=== PATIENT | female | born 1980 | race American Indian/Alaskan Native ===

== ENCOUNTER 2017-03-20 18:58 | Emergency (ER) | payer OTHER ==
[2017-03-20 19:09] VITALS: BP 109/65
[2017-03-20] MEDS ORDERED: HYDROmorphone 0.5 MG/0.5 ML Syringe IVPUSH ONE ×2 (19:26→22:24)
[2017-03-20] MEDS ORDERED: Sodium Chloride 0.9% 500 ML IV ONE (19:26)
[2017-03-20] MEDS ORDERED: Ondansetron 4 MG/2 ML SDV IVPUSH ONE (19:26)
[2017-03-20] MEDS ORDERED: levETIRAcetam 500 MG in Sodium Chloride 0.9% 100 ML IV ONE (19:27)
[2017-03-20] MEDS ORDERED: Sodium Chloride 0.9% 10 ML Syringe FLUSH PRN (19:27)
[2017-03-20] MEDS ORDERED: LORazepam 2 MG/ML MDV IVPUSH ONE (19:28)
[2017-03-20] MEDS ORDERED: Potassium Chloride 10 MEQ in Premix Bag 1 BAG IV ONE (20:37)
--- NOTE | 2017-03-20 20:49 | EDM.PDOC ---
ED HPI GENERAL MEDICAL PROBLEM - General Chief Complaint: Neuro Symptoms/Deficits Stated Complaint: [facility] Time Seen by Provider: 03/20/17 19:16 Source of Information: Reports: Patient, EMS Notes Reviewed, RN Notes Reviewed - History of Present Illness INITIAL COMMENTS - FREE TEXT/NARRATIVE: 37-year-old female comes in having had 2 seizures this past afternoon. She also has left low back pain. She feels that she must stressed her back with the seizure. She was in the bathroom when she did have her second seizure. 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 Her boyfriend told EMS that they lasted about 2-5 minutes. She also does have some headache. She's had some nausea. She had been feeling fine earlier today. She did run out of her Keppra a couple of weeks ago and therefore has been off of that medication for at least 2 weeks. Bilateral Lower Back Pain Score (Numeric/FACES): 9 - Related Data Allergies Allergy/AdvReac Type Severity Reaction Status Date / Time No Known Allergies Allergy Verified 03/20/17 19:04 Home Meds: Home Meds LORazepam [Ativan] 1 mg PO Q12H PRN #10 tablet 09/28/16 [Rx] LORazepam [Ativan] 1 mg PO Q12HR PRN #20 tablet 03/20/17 [Rx] levETIRAcetam [Keppra] 500 mg PO BID #60 tablet 03/20/17 [Rx] Past Medical History [facility] History: Reports: Neurological History: Reports: Seizure Other Neuro History: AV malformation Psychiatric History: Reports: Anxiety, Depression Endocrine/Metabolic History: Reports: Other (See Below) Other Endocrine/Metabolic History: Enlarged thyroid gland - Past Surgical History GI Surgical History: Reports: Cholecystectomy Female Surgical History: Reports: Section Social & Family History - Tobacco Use Smoking Status *Q: Current Every Day Smoker Years of Tobacco use: 26 Packs/Tins Daily: 0.5 - Caffeine Use Caffeine Use: Reports: None - Alcohol Use Days Per Week of Alcohol Use: 4 Number of Drinks Per Day: 14 Total Drinks Per Week: 56 - Recreational Drug Use Recreational Drug Use: No ED ROS GENERAL - Review of Systems Review Of Systems: See Below Constitutional: Denies: Fever, Chills HEENT: Denies: Sinus Problem, Throat Pain Respiratory: Denies: Shortness of Breath Cardiovascular: Denies: Chest Pain GI/Abdominal: Reports: Nausea. Denies: Abdominal Pain, Diarrhea, Vomiting Musculoskeletal: Reports: Back Pain Skin: Denies: Rash Neurological: Reports: Dizziness, Headache, Seizure (2) ED EXAM, NEURO - Physical Exam Exam: See Below General Appearance: Alert, Moderate Distress Eye Exam: Bilateral Eye: PERRL Ears: Normal External Exam Nose: Normal Inspection Throat/Mouth: Normal Inspection Head Exam: Atraumatic. No: Facial Swelling Neck: Supple, Full Range of Motion Respiratory/Chest: No Respiratory Distress, Lungs Clear, Normal Breath Sounds Cardiovascular: Tachycardia GI/Abdominal: Soft, Non-Tender Neurological: Alert, No Motor/Sensory Deficits Back Exam: Paraspinal Tenderness Extremities: Normal Inspection (Left low back), Normal Range of Motion Skin Exam: Warm, Dry, Normal Color, No Rash Course - Vital Signs Last Recorded V/S: Last Vital Signs Temp 98.0 F 03/20/17 19:04 Pulse 100 03/20/17 19:04 Resp 26 H 03/20/17 19:04 BP 109/65 03/20/17 19:04 Pulse Ox 98 03/20/17 19:04 - Orders/Labs/Meds Orders: Active Orders 24 hr Category Date Time Status Peripheral IV Care [RC] . DIRECTED Care 03/20/17 19:27 Active Sodium Chloride 0.9% [Saline Flush] Med 03/20/17 19:27 Active 10 ml FLUSH ASDIRECTED PRN Peripheral IV Insertion Adult [OM.PC] Stat Oth 03/20/17 19:26 Ordered Medication Orders Sodium Chloride (Saline Flush) 10 ml FLUSH ASDIRECTED PRN PRN Reason: Keep Vein Open Last Admin: 03/20/17 19:52 Dose: 10 ml Labs: Laboratory Tests 03/20/17 03/20/17 Range/Units 19:41 19:41 WBC 5.19 (3.98-10.04) K/mm3 RBC 3.79 L (3.98-5.22) M/mm3 Hgb 11.5 (11.2-15.7) gm/L Hct 35.4 (34.1-44.9) % MCV 93.4 (79.4-94.8) fl MCH 30.3 (25.6-32.2) pg MCHC 32.5 (32.2-35.5) g/dl RDW Std Deviation 57.4 H (36.4-46.3) fL Plt Count 69 L (182-369) K/mm3 MPV 10.8 (9.4-12.3) fl Neut % (Auto) 78.5 H (34.0-71.1) % Lymph % (Auto) 11.6 L (19.3-51.7) % [place] % (Auto) 9.1 (4.7-12.5) % Eos % (Auto) 0.2 L (0.7-5.8) Baso % (Auto) 0.2 (0.1-1.2) % Neut # (Auto) 4.08 (1.56-6.13) K/mm3 Lymph # (Auto) 0.60 L (1.18-3.74) K/mm3 [place] # (Auto) 0.47 H (0.24-0.36) K/mm3 Eos # (Auto) 0.01 L (0.04-0.36) K/mm3 Baso # (Auto) 0.01 (0.01-0.08) K/mm3 Manual Slide Review Abnormal smear Sodium 136 (136-145) mEq/L Potassium 2.8 L (3.5-5.1) mEq/L Chloride 100 (98-107) mEq/L Carbon Dioxide 26 (21-32) mEq/L Anion Gap 12.8 (5-15) BUN 3 L (7-18) mg/dL Creatinine 0.9 (0.55-1.02) mg/dL Est Cr Clr Drug Dosing 83.23 mL/min Estimated GFR (MDRD) > 60 (>60) mL/min BUN/Creatinine Ratio 3.3 L (14-18) Glucose 89 (74-106) mg/dL Calcium 8.1 L (8.5-10.1) mg/dL Total Bilirubin 2.0 H (0.2-1.0) mg/dL AST 261 H (15-37) U/L ALT 60 H (14-59) U/L Alkaline Phosphatase 184 H (46-116) U/L Total Protein 8.6 H (6.4-8.2) g/dl Albumin 2.8 L (3.4-5.0) g/dl Globulin 5.8 gm/dL Albumin/Globulin Ratio 0.5 L (1-2) Meds: Medications Generic Name Dose Route Start Last Admin Trade Name Freq PRN Reason Stop Dose Admin Sodium Chloride 10 ml 03/20/17 19:27 03/20/17 19:52 Saline Flush FLUSH 10 ml ASDIRECTED PRN Administration Keep Vein Open Discontinued Medications Generic Name Dose Route Start Last Admin Trade Name Teofilo PRN Reason Stop Dose Admin Hydromorphone HCl 0.5 mg 03/20/17 19:26 03/20/17 19:53 Dilaudid IVPUSH 03/20/17 19:27 0.5 mg ONETIME ONE Administration Hydromorphone HCl 0.5 mg 03/20/17 22:24 03/20/17 22:38 Dilaudid IVPUSH 03/20/17 22:25 0.5 mg ONETIME ONE Administration Sodium Chloride 500 mls @ 999 mls/hr 03/20/17 19:26 03/20/17 19:49 Normal Saline IV 03/20/17 19:56 999 mls/hr .BOLUS ONE Administration Levetiracetam 500 mg/ Sodium 105 mls @ 400 mls/hr 03/20/17 19:27 03/20/17 19: 56 Chloride IV 03/20/17 19:41 400 mls/hr ONETIME ONE Administration Potassium Chloride 10 meq/ 100 mls @ 100 mls/hr 03/20/17 20:37 03/20/17 20:53 Premix IV 03/20/17 21:36 100 mls/hr ONETIME ONE Administration Lorazepam 1 mg 03/20/17 19:28 03/20/17 19:50 Ativan IVPUSH 03/20/17 19:29 1 mg ONETIME ONE Administration Ondansetron HCl 4 mg 03/20/17 19:26 03/20/17 19:48 Zofran IVPUSH 03/20/17 19:27 4 mg ONETIME ONE Administration Potassium Chloride 40 meq 03/20/17 20:50 03/20/17 21:35 Klor-Con M20 PO 03/20/17 20:51 40 meq ONETIME ONE Administration - Re-Assessments/Exams Free Text/Narrative Re-Assessment/Exam: 03/20/17 21:10 Potassium is come back low at 2.8. I have ordered 10 mEq IV potassium. We will get her something to eat, and will then also give 40 mEq oral potassium. 03/20/17 21:11. We have given Keppra 500 mg IV. We have also given Zofran 4 mg IV, Ativan 1 mg IV and Dilaudid 0.5 mg IV for her low back discomfort. 03/20/17 22:59. Feeling better after above meds and some IV fluid. No further seizure activity while here in the ED. Prescription will be provided so that she can continue Keppra as previously prescribed and also Ativan as previously prescribed. Departure - Departure Time of Disposition: 23:29 Disposition: Home, Self-Care 01 Condition: Fair Clinical Impression: Seizure, Hypokalemia - Discharge Information Prescriptions: LORazepam [Ativan] 1 mg PO Q12HR PRN #20 tablet PRN Reason: Anxiety levETIRAcetam [Keppra] 500 mg PO BID #60 tablet Forms: ED Department Discharge Additional Instructions: Rest, drink plenty of fluids to maintain hydration, eat regular meals and snacks , Keppra 500 mg twice daily, Ativan 1 mg twice daily, take other meds as previously prescribed, watch her blood sugars carefully, follow-up with your medical provider as needed, return to ED as needed - My Orders Last 24 Hours: My Active Orders 03/20/17 19:26 Peripheral IV Insertion Adult [OM.PC] Stat 03/20/17 19:27 Peripheral IV Care [RC] . DIRECTED Sodium Chloride 0.9% [Saline Flush] 10 ml FLUSH ASDIRECTED PRN - Assessment/Plan Last 24 Hours: My Active Orders 03/20/17 19:26 Peripheral IV Insertion Adult [OM.PC] Stat 03/20/17 19:27 Peripheral IV Care [RC] . DIRECTED Sodium Chloride 0.9% [Saline Flush] 10 ml FLUSH ASDIRECTED PRN
[2017-03-20] MEDS ORDERED: Potassium Chloride 20 MEQ Tab.ER PO ONE (20:50)
[2017-03-21] MEDS ORDERED: Acetaminophen/HYDROcodone 325-5 MG Tab PO ONE (00:13)
[2017-03-21] MEDS ORDERED: Acetaminophen/HYDROcodone 325-5 MG Tab ONE (00:18)
== END 2017-03-21 00:20 | disposition home or self-care (01) ==
LOC: JD.ED 18:58
DX: R56.9 Unspecified convulsions (principal); E87.6 Hypokalemia; F17.210 Nicotine dependence, cigarettes, uncomplicated; F41.9 Anxiety disorder, unspecified; F32.9 Major depressive disorder, single episode, unspecified; Z90.49 Acquired absence of other specified parts of digestive tract
CPT/HCPCS: 36415; 80053; 85025; 96361; 96365; 96366; 96367; 96375; 96376; 99285; A9270; J1170; J1953; J2060; J2405; J3480; J7030; J7040; J7050; 99284

== ENCOUNTER 2017-04-23 11:28 | Emergency (ER) | payer OTHER ==
[2017-04-23] MEDS ORDERED: Lactated Ringers 1,000 ML IV ONE ×2 (11:34→12:31)
[2017-04-23] MEDS ORDERED: LORazepam 2 MG/ML MDV IVPUSH ONE ×2 (11:34→14:36)
[2017-04-23] MEDS ORDERED: Sodium Chloride 0.9% 10 ML Syringe FLUSH PRN (11:36)
--- NOTE | 2017-04-23 11:44 | EDM.PDOC ---
ED HPI GENERAL MEDICAL PROBLEM - General Chief Complaint: Syncope Stated Complaint: [facility] Time Seen by Provider: 04/23/17 11:30 Source of Information: Reports: EMS History Limitations: Reports: No Limitations - History of Present Illness INITIAL COMMENTS - FREE TEXT/NARRATIVE: 37-year-old female arrives via [facility] for evaluation and treatment of lethargy. Report from EMS is that she was drinking yesterday with her . Her became concerned when she passed out yesterday and has not gotten up aside from using the bathroom one time last night. EMS noted that she is very jaundiced. They did place an IV which she pulled out. She only states "leave me alone" when asked questions. Patient's past medical history of a seizure disorder. Patient is alert upon my questioning but only responds "leave me alone" when asked questions. - Related Data Allergies Allergy/AdvReac Type Severity Reaction Status Date / Time No Known Allergies Allergy Verified 04/23/17 11:53 Home Meds: Home Meds LORazepam [Ativan] 1 mg PO Q12H PRN #10 tablet 09/28/16 [Rx] LORazepam [Ativan] 1 mg PO Q12HR PRN #20 tablet 03/20/17 [Rx] levETIRAcetam [Keppra] 500 mg PO BID #60 tablet 03/20/17 [Rx] Past Medical History [employer] History: Reports: Neurological History: Reports: Seizure Other Neuro History: AV malformation Psychiatric History: Reports: Anxiety, Depression Endocrine/Metabolic History: Reports: Other (See Below) Other Endocrine/Metabolic History: Enlarged thyroid gland - Past Surgical History GI Surgical History: Reports: Cholecystectomy Female Surgical History: Reports: Section Social & Family History - Tobacco Use Smoking Status *Q: Current Every Day Smoker Years of Tobacco use: 26 Packs/Tins Daily: 0.5 - Caffeine Use Caffeine Use: Reports: None - Alcohol Use Days Per Week of Alcohol Use: 4 Number of Drinks Per Day: 14 Total Drinks Per Week: 56 - Recreational Drug Use Recreational Drug Use: No ED ROS GENERAL - Review of Systems Review Of Systems: Unable To Obtain ED EXAM, GENERAL - Physical Exam Exam: See Below Exam Limited By: No Limitations General Appearance: Alert, No Apparent Distress, Obese Eye Exam: Bilateral Eye: PERRL, Other (icterus) Ears: Normal External Exam Nose: Normal Inspection Throat/Mouth: Other (dried blood in corners in the mouth; poor dentition with multiple carries into the dentin, multiple missing ) Respiratory/Chest: Lungs Clear, Other (tachypnea) Cardiovascular: Normal Peripheral Pulses, Regular Rate, Rhythm, No Murmur Peripheral Pulses: 2+: Posterior Tibial (L), Posterior Tibial (R), Dorsalis Pedis (L), Dorsalis Pedis (R), 3+: Radial (L), Radial (R) GI/Abdominal: Hepatomegaly, Other (suspected full bladder cannot rule out gravid uterus) Neurological: Alert, Other (GCS 10) Skin Exam: Jaundice Course - Vital Signs Last Recorded V/S: Last Vital Signs Temp 35.8 C 04/23/17 15:40 Pulse 96 04/23/17 15:40 Resp 26 H 04/23/17 15:40 BP 104/55 L 04/23/17 15:40 Pulse Ox 95 04/23/17 15:40 - Orders/Labs/Meds Orders: Active Orders 24 hr Category Date Time Status Blood Glucose Check, Bedside [RC] ONETIME Care 04/23/17 11:37 Active Cardiac Monitoring [RC] . DIRECTED Care 04/23/17 11:34 Active EKG Documentation Completion [RC] STAT Care 04/23/17 11:34 Active Insert [place] Catheter [Insert Urinary Catheter] [OM.PC] Care 04/23/17 13:05 Ordered Stat Peripheral IV Care [RC] . DIRECTED Care 04/23/17 11:36 Active Urinary Catheter Assessment [RC] ASDIRECTED Care 04/23/17 13:05 Active Abdomen 1V Flat [CR] Stat Exams 04/23/17 11:33 Taken Chest 1V Frontal [CR] Stat Exams 04/23/17 11:34 Taken Head wo Cont [CT] Stat Exams 04/23/17 11:45 Taken CULTURE BLOOD [BC] Stat Lab 04/23/17 12:25 Received CULTURE BLOOD [BC] Stat Lab 04/23/17 12:31 Received CULTURE URINE [RM] Stat Lab 04/23/17 13:05 Received HEPATITIS PANEL, ACUTE [REF] Stat Lab 04/23/17 11:35 Received RED BLOOD CELLS APH1 LR [BBK] Stat Lab 04/23/17 11:35 Results RED BLOOD CELLS LP [BBK] Stat Lab 04/23/17 11:35 Results Blood Culture x2 Reflex Set [OM.PC] Stat Ot 04/23/17 11:34 Ordered Peripheral IV Insertion Adult [OM.PC] Routine Ot 04/23/17 11:36 Ordered Transfuse PRBC [Transfuse Red Blood Cells] [COMM] Stat [facility] 04/23/17 13:09 Ordered Labs: Laboratory Tests 04/23/17 04/23/17 04/23/17 Range/Units 11:34 11:35 11:35 WBC 9.17 (3.98-10.04) K/mm3 RBC 2.68 L (3.98-5.22) M/mm3 Hgb 9.1 L (11.2-15.7) gm/L Hct 26.7 L (34.1-44.9) % MCV 99.6 H (79.4-94.8) fl MCH 34.0 H (25.6-32.2) pg MCHC 34.1 (32.2-35.5) g/dl RDW Std Deviation 73.4 H (36.4-46.3) fL Plt Count 54 L (182-369) K/mm3 MPV 10.9 (9.4-12.3) fl Neutrophils % (Manual) 78 H (40-60) % Band Neutrophils % 9 (0-10) % Lymphocytes % (Manual) 11 L (20-40) % Atypical Lymphs % 0 % Monocytes % (Manual) 2 (2-10) % Eosinophils % (Manual) 0 L (0.7-5.8) % Basophils % (Manual) 0 L (0.1-1.2) Platelet Estimate See note Polychromasia 1+ slight Anisocytosis 1+ slight Macrocytosis 1+ slight Target Cells Few RBC Morph Comment Not Reportable PT (8.0-13.0) SECONDS INR APTT (22-36) SECONDS Puncture Site ABG pH (7.35-7.45) ABG pCO2 (35.0-45.0) mmHg ABG pO2 (80.0-100.0) mmHg ABG HCO3 (22.0-26.0) meq/L ABG O2 Saturation (96.0-97.0) % ABG Base Excess (-2-2.0) A-a Gradient mmHg FiO2 (21.00-100.00) % Sodium 127 L (136-145) mEq/L Potassium 2.8 L (3.5-5.1) mEq/L Chloride 85 L (98-107) mEq/L Carbon Dioxide 25 (21-32) mEq/L Anion Gap 19.8 H (5-15) BUN 27 H (7-18) mg/dL Creatinine 3.9 H (0.55-1.02) mg/dL Est Cr Clr Drug Dosing TNP Estimated GFR (MDRD) 13 (>60) mL/min BUN/Creatinine Ratio 6.9 L (14-18) Glucose 72 L (74-106) mg/dL POC Glucose 74 (70-105) mg/dL Lactic Acid (0.4-2.0) mmol/L Calcium 7.9 L (8.5-10.1) mg/dL Magnesium (1.8-2.4) mg/dl Total Bilirubin 17.0 H* (0.2-1.0) mg/dL AST 351 H (15-37) U/L ALT 61 H (14-59) U/L Alkaline Phosphatase 178 H (46-116) U/L Ammonia (11-32) umol/L C-Reactive Protein 14.4 H* (<1.0) mg/dL Total Protein 8.7 H (6.4-8.2) g/dl Albumin 1.7 L (3.4-5.0) g/dl Globulin 7.0 gm/dL Albumin/Globulin Ratio 0.2 L (1-2) Lipase 415 H (73-393) U/L HCG, Qual (NEGATIVE) Urine Color (Yellow) Urine Appearance (Clear) Urine pH (5.0-8.0) Ur Specific [place] (1.005-1.030) Urine Protein (Negative) Urine Glucose (UA) (Negative) Urine Ketones (Negative) Urine Occult Blood (Negative) Urine Nitrite (Negative) Urine Bilirubin (Negative) Urine Urobilinogen (0.2-1.0) Ur Leukocyte Esterase (Negative) Urine RBC (0-5) /hpf Urine WBC (0-5) /hpf Ur Epithelial Cells (0-5) /hpf Urine Bacteria (FEW) /hpf Urine Mucus (FEW) /hpf Urine Opiates Screen (NEGATIVE) Ur Buprenorphine Scrn (NEGATIVE) Ur Oxycodone Screen (NEGATIVE) Urine Methadone Screen (NEGATIVE) Ur Propoxyphene Screen (NEGATIVE) Ur Barbiturates Screen (NEGATIVE) Ur Tricyclics Screen (NEGATIVE) Ur Phencyclidine Scrn (NEGATIVE) Ur Amphetamine Screen (NEGATIVE) U Methamphetamines Scrn (NEGATIVE) U Benzodiazepines Scrn (NEGATIVE) U Cocaine Metab Screen (NEGATIVE) U Marijuana (THC) Screen (NEGATIVE) Ethyl Alcohol 0.00 (0.00) gm% Blood Type Gel Antibody Screen Crossmatch 04/23/17 04/23/17 04/23/17 Range/Units 11:35 11:35 11:35 WBC (3.98-10.04) K/mm3 RBC (3.98-5.22) M/mm3 Hgb (11.2-15.7) gm/L Hct (34.1-44.9) % MCV (79.4-94.8) fl MCH (25.6-32.2) pg MCHC (32.2-35.5) g/dl RDW Std Deviation (36.4-46.3) fL Plt Count (182-369) K/mm3 MPV (9.4-12.3) fl Neutrophils % (Manual) (40-60) % Band Neutrophils % (0-10) % Lymphocytes % (Manual) (20-40) % Atypical Lymphs % % Monocytes % (Manual) (2-10) % Eosinophils % (Manual) (0.7-5.8) % Basophils % (Manual) (0.1-1.2) Platelet Estimate Polychromasia Anisocytosis Macrocytosis Target Cells RBC Morph Comment PT 25.4 H (8.0-13.0) SECONDS INR 2.21 APTT 75 H (22-36) SECONDS Puncture Site ABG pH (7.35-7.45) ABG pCO2 (35.0-45.0) mmHg ABG pO2 (80.0-100.0) mmHg ABG HCO3 (22.0-26.0) meq/L ABG O2 Saturation (96.0-97.0) % ABG Base Excess (-2-2.0) A-a Gradient mmHg FiO2 (21.00-100.00) % Sodium (136-145) mEq/L Potassium (3.5-5.1) mEq/L Chloride (98-107) mEq/L Carbon Dioxide (21-32) mEq/L Anion Gap (5-15) BUN (7-18) mg/dL Creatinine (0.55-1.02) mg/dL Est Cr Clr Drug Dosing Estimated GFR (MDRD) (>60) mL/min BUN/Creatinine Ratio (14-18) Glucose (74-106) mg/dL POC Glucose (70-105) mg/dL Lactic Acid (0.4-2.0) mmol/L Calcium (8.5-10.1) mg/dL Magnesium (1.8-2.4) mg/dl Total Bilirubin (0.2-1.0) mg/dL AST (15-37) U/L ALT (14-59) U/L Alkaline Phosphatase (46-116) U/L Ammonia 127 H (11-32) umol/L C-Reactive Protein (<1.0) mg/dL Total Protein (6.4-8.2) g/dl Albumin (3.4-5.0) g/dl Globulin gm/dL Albumin/Globulin Ratio (1-2) Lipase (73-393) U/L HCG, Qual Negative (NEGATIVE) Urine Color (Yellow) Urine Appearance (Clear) Urine pH (5.0-8.0) Ur Specific [place] (1.005-1.030) Urine Protein (Negative) Urine Glucose (UA) (Negative) Urine Ketones (Negative) Urine Occult Blood (Negative) Urine Nitrite (Negative) Urine Bilirubin (Negative) Urine Urobilinogen (0.2-1.0) Ur Leukocyte Esterase (Negative) Urine RBC (0-5) /hpf Urine WBC (0-5) /hpf Ur Epithelial Cells (0-5) /hpf Urine Bacteria (FEW) /hpf Urine Mucus (FEW) /hpf Urine Opiates Screen (NEGATIVE) Ur Buprenorphine Scrn (NEGATIVE) Ur Oxycodone Screen (NEGATIVE) Urine Methadone Screen (NEGATIVE) Ur Propoxyphene Screen (NEGATIVE) Ur Barbiturates Screen (NEGATIVE) Ur Tricyclics Screen (NEGATIVE) Ur Phencyclidine Scrn (NEGATIVE) Ur Amphetamine Screen (NEGATIVE) U Methamphetamines Scrn (NEGATIVE) U Benzodiazepines Scrn (NEGATIVE) U Cocaine Metab Screen (NEGATIVE) U Marijuana (THC) Screen (NEGATIVE) Ethyl Alcohol (0.00) gm% Blood Type Gel Antibody Screen Crossmatch 04/23/17 04/23/17 04/23/17 Range/Units 11:35 11:35 11:35 WBC (3.98-10.04) K/mm3 RBC (3.98-5.22) M/mm3 Hgb (11.2-15.7) gm/L Hct (34.1-44.9) % MCV (79.4-94.8) fl MCH (25.6-32.2) pg MCHC (32.2-35.5) g/dl RDW Std Deviation (36.4-46.3) fL Plt Count (182-369) K/mm3 MPV (9.4-12.3) fl Neutrophils % (Manual) (40-60) % Band Neutrophils % (0-10) % Lymphocytes % (Manual) (20-40) % Atypical Lymphs % % Monocytes % (Manual) (2-10) % Eosinophils % (Manual) (0.7-5.8) % Basophils % (Manual) (0.1-1.2) Platelet Estimate Polychromasia Anisocytosis Macrocytosis Target Cells RBC Morph Comment PT (8.0-13.0) SECONDS INR APTT (22-36) SECONDS Puncture Site ABG pH (7.35-7.45) ABG pCO2 (35.0-45.0) mmHg ABG pO2 (80.0-100.0) mmHg ABG HCO3 (22.0-26.0) meq/L ABG O2 Saturation (96.0-97.0) % ABG Base Excess (-2-2.0) A-a Gradient mmHg FiO2 (21.00-100.00) % Sodium (136-145) mEq/L Potassium (3.5-5.1) mEq/L Chloride (98-107) mEq/L Carbon Dioxide (21-32) mEq/L Anion Gap (5-15) BUN (7-18) mg/dL Creatinine (0.55-1.02) mg/dL Est Cr Clr Drug Dosing Estimated GFR (MDRD) (>60) mL/min BUN/Creatinine Ratio (14-18) Glucose (74-106) mg/dL POC Glucose (70-105) mg/dL Lactic Acid (0.4-2.0) mmol/L Calcium (8.5-10.1) mg/dL Magnesium 1.5 L (1.8-2.4) mg/dl Total Bilirubin (0.2-1.0) mg/dL AST (15-37) U/L ALT (14-59) U/L Alkaline Phosphatase (46-116) U/L Ammonia (11-32) umol/L C-Reactive Protein (<1.0) mg/dL Total Protein (6.4-8.2) g/dl Albumin (3.4-5.0) g/dl Globulin gm/dL Albumin/Globulin Ratio (1-2) Lipase (73-393) U/L HCG, Qual (NEGATIVE) Urine Color (Yellow) Urine Appearance (Clear) Urine pH (5.0-8.0) Ur Specific [place] (1.005-1.030) Urine Protein (Negative) Urine Glucose (UA) (Negative) Urine Ketones (Negative) Urine Occult Blood (Negative) Urine Nitrite (Negative) Urine Bilirubin (Negative) Urine Urobilinogen (0.2-1.0) Ur Leukocyte Esterase (Negative) Urine RBC (0-5) /hpf Urine WBC (0-5) /hpf Ur Epithelial Cells (0-5) /hpf Urine Bacteria (FEW) /hpf Urine Mucus (FEW) /hpf Urine Opiates Screen (NEGATIVE) Ur Buprenorphine Scrn (NEGATIVE) Ur Oxycodone Screen (NEGATIVE) Urine Methadone Screen (NEGATIVE) Ur Propoxyphene Screen (NEGATIVE) Ur Barbiturates Screen (NEGATIVE) Ur Tricyclics Screen (NEGATIVE) Ur Phencyclidine Scrn (NEGATIVE) Ur Amphetamine Screen (NEGATIVE) U Methamphetamines Scrn (NEGATIVE) U Benzodiazepines Scrn (NEGATIVE) U Cocaine Metab Screen (NEGATIVE) U Marijuana (THC) Screen (NEGATIVE) Ethyl Alcohol (0.00) gm% Blood Type O POSITIVE Gel Antibody Screen Negative Crossmatch See Detail See Detail 04/23/17 04/23/17 04/23/17 Range/Units 12:20 12:25 13:05 WBC (3.98-10.04) K/mm3 RBC (3.98-5.22) M/mm3 Hgb (11.2-15.7) gm/L Hct (34.1-44.9) % MCV (79.4-94.8) fl MCH (25.6-32.2) pg MCHC (32.2-35.5) g/dl RDW Std Deviation (36.4-46.3) fL Plt Count (182-369) K/mm3 MPV (9.4-12.3) fl Neutrophils % (Manual) (40-60) % Band Neutrophils % (0-10) % Lymphocytes % (Manual) (20-40) % Atypical Lymphs % % Monocytes % (Manual) (2-10) % Eosinophils % (Manual) (0.7-5.8) % Basophils % (Manual) (0.1-1.2) Platelet Estimate Polychromasia Anisocytosis Macrocytosis Target Cells RBC Morph Comment PT (8.0-13.0) SECONDS INR APTT (22-36) SECONDS Puncture Site Lt radial ABG pH 7.47 H (7.35-7.45) ABG pCO2 31.1 L (35.0-45.0) mmHg ABG pO2 71.0 L (80.0-100.0) mmHg ABG HCO3 22.1 (22.0-26.0) meq/L ABG O2 Saturation 94.5 L (96.0-97.0) % ABG Base Excess -0.8 (-2-2.0) A-a Gradient 25 mmHg FiO2 21.00 (21.00-100.00) % Sodium (136-145) mEq/L Potassium (3.5-5.1) mEq/L Chloride (98-107) mEq/L Carbon Dioxide (21-32) mEq/L Anion Gap (5-15) BUN (7-18) mg/dL Creatinine (0.55-1.02) mg/dL Est Cr Clr Drug Dosing Estimated GFR (MDRD) (>60) mL/min BUN/Creatinine Ratio (14-18) Glucose (74-106) mg/dL POC Glucose (70-105) mg/dL Lactic Acid 7.4 H (0.4-2.0) mmol/L Calcium (8.5-10.1) mg/dL Magnesium (1.8-2.4) mg/dl Total Bilirubin (0.2-1.0) mg/dL AST (15-37) U/L ALT (14-59) U/L Alkaline Phosphatase (46-116) U/L Ammonia (11-32) umol/L C-Reactive Protein (<1.0) mg/dL Total Protein (6.4-8.2) g/dl Albumin (3.4-5.0) g/dl Globulin gm/dL Albumin/Globulin Ratio (1-2) Lipase (73-393) U/L HCG, Qual (NEGATIVE) Urine Color (Yellow) Urine Appearance (Clear) Urine pH (5.0-8.0) Ur Specific [place] (1.005-1.030) Urine Protein (Negative) Urine Glucose (UA) (Negative) Urine Ketones (Negative) Urine Occult Blood (Negative) Urine Nitrite (Negative) Urine Bilirubin (Negative) Urine Urobilinogen (0.2-1.0) Ur Leukocyte Esterase (Negative) Urine RBC (0-5) /hpf Urine WBC (0-5) /hpf Ur Epithelial Cells (0-5) /hpf Urine Bacteria (FEW) /hpf Urine Mucus (FEW) /hpf Urine Opiates Screen Negative (NEGATIVE) Ur Buprenorphine Scrn Negative (NEGATIVE) Ur Oxycodone Screen Negative (NEGATIVE) Urine Methadone Screen Negative (NEGATIVE) Ur Propoxyphene Screen Negative (NEGATIVE) Ur Barbiturates Screen Negative (NEGATIVE) Ur Tricyclics Screen Negative (NEGATIVE) Ur Phencyclidine Scrn Negative (NEGATIVE) Ur Amphetamine Screen Negative (NEGATIVE) U Methamphetamines Scrn Negative (NEGATIVE) U Benzodiazepines Scrn Presumptive positive H (NEGATIVE) U Cocaine Metab Screen Negative (NEGATIVE) U Marijuana (THC) Screen Negative (NEGATIVE) Ethyl Alcohol (0.00) gm% Blood Type Gel Antibody Screen Crossmatch 04/23/17 04/23/17 04/23/17 Range/Units 13:05 13:46 14:30 WBC (3.98-10.04) K/mm3 RBC (3.98-5.22) M/mm3 Hgb (11.2-15.7) gm/L Hct (34.1-44.9) % MCV (79.4-94.8) fl MCH (25.6-32.2) pg MCHC (32.2-35.5) g/dl RDW Std Deviation (36.4-46.3) fL Plt Count (182-369) K/mm3 MPV (9.4-12.3) fl Neutrophils % (Manual) (40-60) % Band Neutrophils % (0-10) % Lymphocytes % (Manual) (20-40) % Atypical Lymphs % % Monocytes % (Manual) (2-10) % Eosinophils % (Manual) (0.7-5.8) % Basophils % (Manual) (0.1-1.2) Platelet Estimate Polychromasia Anisocytosis Macrocytosis Target Cells RBC Morph Comment PT (8.0-13.0) SECONDS INR APTT (22-36) SECONDS Puncture Site ABG pH (7.35-7.45) ABG pCO2 (35.0-45.0) mmHg ABG pO2 (80.0-100.0) mmHg ABG HCO3 (22.0-26.0) meq/L ABG O2 Saturation (96.0-97.0) % ABG Base Excess (-2-2.0) A-a Gradient mmHg FiO2 (21.00-100.00) % Sodium (136-145) mEq/L Potassium (3.5-5.1) mEq/L Chloride (98-107) mEq/L Carbon Dioxide (21-32) mEq/L Anion Gap (5-15) BUN (7-18) mg/dL Creatinine (0.55-1.02) mg/dL Est Cr Clr Drug Dosing Estimated GFR (MDRD) (>60) mL/min BUN/Creatinine Ratio (14-18) Glucose (74-106) mg/dL POC Glucose 63 L 97 (70-105) mg/dL Lactic Acid (0.4-2.0) mmol/L Calcium (8.5-10.1) mg/dL Magnesium (1.8-2.4) mg/dl Total Bilirubin (0.2-1.0) mg/dL AST (15-37) U/L ALT (14-59) U/L Alkaline Phosphatase (46-116) U/L Ammonia (11-32) umol/L C-Reactive Protein (<1.0) mg/dL Total Protein (6.4-8.2) g/dl Albumin (3.4-5.0) g/dl Globulin gm/dL Albumin/Globulin Ratio (1-2) Lipase (73-393) U/L HCG, Qual (NEGATIVE) Urine Color Straw (Yellow) Urine Appearance Cloudy H (Clear) Urine pH 5.5 (5.0-8.0) Ur Specific [place] 1.025 (1.005-1.030) Urine Protein 2+ H (Negative) Urine Glucose (UA) Trace H (Negative) Urine Ketones 1+ H (Negative) Urine Occult Blood Trace-lysed H (Negative) Urine Nitrite Negative (Negative) Urine Bilirubin 3+ H (Negative) Urine Urobilinogen 2.0 H (0.2-1.0) Ur Leukocyte Esterase Negative (Negative) Urine RBC 0-5 (0-5) /hpf Urine WBC 10-20 H (0-5) /hpf Ur Epithelial Cells 0-5 (0-5) /hpf Urine Bacteria Many H (FEW) /hpf Urine Mucus Not seen (FEW) /hpf Urine Opiates Screen (NEGATIVE) Ur Buprenorphine Scrn (NEGATIVE) Ur Oxycodone Screen (NEGATIVE) Urine Methadone Screen (NEGATIVE) Ur Propoxyphene Screen (NEGATIVE) Ur Barbiturates Screen (NEGATIVE) Ur Tricyclics Screen (NEGATIVE) Ur Phencyclidine Scrn (NEGATIVE) Ur Amphetamine Screen (NEGATIVE) U Methamphetamines Scrn (NEGATIVE) U Benzodiazepines Scrn (NEGATIVE) U Cocaine Metab Screen (NEGATIVE) U Marijuana (THC) Screen (NEGATIVE) Ethyl Alcohol (0.00) gm% Blood Type Gel Antibody Screen Crossmatch 04/23/17 Range/Units 15:29 WBC (3.98-10.04) K/mm3 RBC (3.98-5.22) M/mm3 Hgb (11.2-15.7) gm/L Hct (34.1-44.9) % MCV (79.4-94.8) fl MCH (25.6-32.2) pg MCHC (32.2-35.5) g/dl RDW Std Deviation (36.4-46.3) fL Plt Count (182-369) K/mm3 MPV (9.4-12.3) fl Neutrophils % (Manual) (40-60) % Band Neutrophils % (0-10) % Lymphocytes % (Manual) (20-40) % Atypical Lymphs % % Monocytes % (Manual) (2-10) % Eosinophils % (Manual) (0.7-5.8) % Basophils % (Manual) (0.1-1.2) Platelet Estimate Polychromasia Anisocytosis Macrocytosis Target Cells RBC Morph Comment PT (8.0-13.0) SECONDS INR APTT (22-36) SECONDS Puncture Site ABG pH (7.35-7.45) ABG pCO2 (35.0-45.0) mmHg ABG pO2 (80.0-100.0) mmHg ABG HCO3 (22.0-26.0) meq/L ABG O2 Saturation (96.0-97.0) % ABG Base Excess (-2-2.0) A-a Gradient mmHg FiO2 (21.00-100.00) % Sodium (136-145) mEq/L Potassium (3.5-5.1) mEq/L Chloride (98-107) mEq/L Carbon Dioxide (21-32) mEq/L Anion Gap (5-15) BUN (7-18) mg/dL Creatinine (0.55-1.02) mg/dL Est Cr Clr Drug Dosing Estimated GFR (MDRD) (>60) mL/min BUN/Creatinine Ratio (14-18) Glucose (74-106) mg/dL POC Glucose 74 (70-105) mg/dL Lactic Acid (0.4-2.0) mmol/L Calcium (8.5-10.1) mg/dL Magnesium (1.8-2.4) mg/dl Total Bilirubin (0.2-1.0) mg/dL AST (15-37) U/L ALT (14-59) U/L Alkaline Phosphatase (46-116) U/L Ammonia (11-32) umol/L C-Reactive Protein (<1.0) mg/dL Total Protein (6.4-8.2) g/dl Albumin (3.4-5.0) g/dl Globulin gm/dL Albumin/Globulin Ratio (1-2) Lipase (73-393) U/L HCG, Qual (NEGATIVE) Urine Color (Yellow) Urine Appearance (Clear) Urine pH (5.0-8.0) Ur Specific [place] (1.005-1.030) Urine Protein (Negative) Urine Glucose (UA) (Negative) Urine Ketones (Negative) Urine Occult Blood (Negative) Urine Nitrite (Negative) Urine Bilirubin (Negative) Urine Urobilinogen (0.2-1.0) Ur Leukocyte Esterase (Negative) Urine RBC (0-5) /hpf Urine WBC (0-5) /hpf Ur Epithelial Cells (0-5) /hpf Urine Bacteria (FEW) /hpf Urine Mucus (FEW) /hpf Urine Opiates Screen (NEGATIVE) Ur Buprenorphine Scrn (NEGATIVE) Ur Oxycodone Screen (NEGATIVE) Urine Methadone Screen (NEGATIVE) Ur Propoxyphene Screen (NEGATIVE) Ur Barbiturates Screen (NEGATIVE) Ur Tricyclics Screen (NEGATIVE) Ur Phencyclidine Scrn (NEGATIVE) Ur Amphetamine Screen (NEGATIVE) U Methamphetamines Scrn (NEGATIVE) U Benzodiazepines Scrn (NEGATIVE) U Cocaine Metab Screen (NEGATIVE) U Marijuana (THC) Screen (NEGATIVE) Ethyl Alcohol (0.00) gm% Blood Type Gel Antibody Screen Crossmatch Meds: Medications Discontinued Medications Generic Name Dose Route Start Last Admin Trade Name Freq PRN Reason Stop Dose Admin Dextrose/Water 25 ml 04/23/17 13:48 04/23/17 13:51 Dextrose 50% In Water IVPUSH 25 ml ASDIRECTED PRN Administration Hypoglycemia Dextrose/Water Confirm 04/23/17 13:51 04/23/17 13:53 Dextrose 50% In Water Administered 04/23/17 13:52 Not Given Dose 50 ml .ROUTE .STK-MED ONE Dextrose/Water 25 ml 04/23/17 15:30 04/23/17 15:32 Dextrose 50% In Water IVPUSH 25 ml ASDIRECTED PRN Administration Blood Glucose Lactated Ringer's 1,000 mls @ 999 mls/hr 04/23/17 11:34 04/23/17 11:48 Ringers, Lactated IV 04/23/17 12:34 999 mls/hr .BOLUS ONE Administration Magnesium Sulfate 2 gm/ Premix 50 mls @ 50 mls/hr 04/23/17 12:06 04/23/17 12: 35 IV 04/23/17 13:05 50 mls/hr ONETIME ONE Administration Lactated Ringer's 1,000 mls @ 999 mls/hr 04/23/17 12:31 04/23/17 12:55 Ringers, Lactated IV 04/23/17 13:31 999 mls/hr .BOLUS ONE Administration Potassium Chloride/Sodium Chloride 1,000 mls @ 999 mls/hr 04/23/17 14:15 05/30 14:30 Normal Saline With 20 Meq Kcl IV 999 mls/hr ASDIRECTED SCOTTIE Administration Pantoprazole Sodium 80 mg/ 100 mls @ 10 mls/hr 04/23/17 14:38 04/23/17 15:00 Sodium Chloride IV 04/24/17 00:37 8 mg/hr ONETIME ONE 10 mls/hr 8 MG/HR Administration Lorazepam 1 mg 04/23/17 11:34 04/23/17 11:46 Ativan IVPUSH 04/23/17 11:35 1 mg ONETIME ONE Administration Lorazepam 0.5 mg 04/23/17 14:36 04/23/17 14:45 Ativan IVPUSH 04/23/17 14:37 0.5 mg ONETIME ONE Administration Pantoprazole Sodium 40 mg 04/23/17 14:10 04/23/17 14:32 Protonix Iv IVPUSH 04/23/17 14:11 40 mg ONETIME ONE Administration Sodium Chloride 10 ml 04/23/17 11:36 04/23/17 11:35 Saline Flush FLUSH 10 ml ASDIRECTED PRN Administration Keep Vein Open - Re-Assessments/Exams Free Text/Narrative Re-Assessment/Exam: 04/23/17 13:[address] Herring, hospice on-call. Recommend a higher level of care. Spoke with Dr. Gibson, hospitalist at [facility] in [place]. He recommended having a surgeon see her here in the ED due to her blood pressures in the 90s and the rectal bleeding. Recommends a emergent scope. I spoke with Dr. Walker. He felt that this was a medical problem and should medically managed initally. Did not feel scope was indicated at this time and would be a risk to the patient's life. He recommended blood transfusion and transferred to [place]. I spoke with Dr. Monge, ER physician. She agrees to accept the patient. We will recheck her blood sugar and give her sugar if needed. Wll give her 2 units of cunrossmatched blood and plan to transfer to [facility] in [place] through the ER. The patient's boyfriend called. I did not quite catch his name but it is something Heart. His phone #[phone]. He reports that she has been drinking alcohol on Monday and Monday. he reports that she has been mixing her meds with alcohol. No seizures that he is aware of. She did take her seizure medications about 12 hours ago, he believes. Reports that she has been vomiting about 3-6 times per day for several weeks. Does not know of any diarrhea. 04/23/17 14:12 3rd liter of fluid ordered. NS with K20 meq. Protonix ordered IVP ordered. Awaiting ambulance. 04/23/17 15:00 Protonix drip started. The patient has received 3 L of fluid, 2 g of magnesium, 20 meq of potassium, 1.5 (total) mg ativan and 2 units of blood, 40mg IVP protonix and protonix drip. Unfortunately, we were not made aware that the ambulance would not be able to transfer the patient immediately. We have elected to fly the patient to [facility] in [place]. Departure - Departure Time of Disposition: 15:15 Disposition: DC/Tfer to [facility] 02 Condition: Critical Clinical Impression: Hypokalemia, Hepatic encephalopathy, GI bleed, Hypomagnesemia, Acute kidney failure - Discharge Information Referrals: PCP,None [Primary Care Provider] - Forms: ED Department Discharge Additional Instructions: Patient went to [facility] in [place]. She is to go through the ER. - My Orders Last 24 Hours: My Active Orders 04/23/17 11:33 Abdomen 1V Flat [CR] Stat 04/23/17 11:34 Cardiac Monitoring [RC] . DIRECTED EKG Documentation Completion [RC] STAT Chest 1V Frontal [CR] Stat Blood Culture x2 Reflex Set [OM.PC] Stat 04/23/17 11:35 HEPATITIS PANEL, ACUTE [REF] Stat RED BLOOD CELLS APH1 LR [BBK] Stat RED BLOOD CELLS LP [BBK] Stat 04/23/17 11:36 Peripheral IV Care [RC] . DIRECTED Peripheral IV Insertion Adult [OM.PC] Routine 04/23/17 11:37 Blood Glucose Check, Bedside [RC] ONETIME 04/23/17 11:45 Head wo Cont [CT] Stat 04/23/17 12:25 CULTURE BLOOD [BC] Stat 04/23/17 12:31 CULTURE BLOOD [BC] Stat 04/23/17 13:05 Insert [place] Catheter [Insert Urinary Catheter] [OM.PC] Stat Urinary Catheter Assessment [RC] ASDIRECTED CULTURE URINE [RM] Stat 04/23/17 13:09 Transfuse PRBC [Transfuse Red Blood Cells] [COMM] Stat - Assessment/Plan Last 24 Hours: My Active Orders 04/23/17 11:33 Abdomen 1V Flat [CR] Stat 04/23/17 11:34 Cardiac Monitoring [RC] . DIRECTED EKG Documentation Completion [RC] STAT Chest 1V Frontal [CR] Stat Blood Culture x2 Reflex Set [OM.PC] Stat 04/23/17 11:35 HEPATITIS PANEL, ACUTE [REF] Stat RED BLOOD CELLS APH1 LR [BBK] Stat RED BLOOD CELLS LP [BBK] Stat 04/23/17 11:36 Peripheral IV Care [RC] . DIRECTED Peripheral IV Insertion Adult [OM.PC] Routine 04/23/17 11:37 Blood Glucose Check, Bedside [RC] ONETIME 04/23/17 11:45 Head wo Cont [CT] Stat 04/23/17 12:25 CULTURE BLOOD [BC] Stat 04/23/17 12:31 CULTURE BLOOD [BC] Stat 04/23/17 13:05 Insert [place] Catheter [Insert Urinary Catheter] [OM.PC] Stat Urinary Catheter Assessment [RC] ASDIRECTED CULTURE URINE [RM] Stat 04/23/17 13:09 Transfuse PRBC [Transfuse Red Blood Cells] [COMM] Stat
[2017-04-23] MEDS ORDERED: Magnesium Sulfate/Water 2 GM in Premix Bag 1 BAG IV ONE (12:06)
[2017-04-23] MEDS ORDERED: 50% Dextrose in Water 50 ML Syringe IVPUSH PRN ×2 (13:48→15:30)
[2017-04-23] MEDS ORDERED: 50% Dextrose in Water 50 ML Syringe ONE (13:51)
[2017-04-23] MEDS ORDERED: Pantoprazole 40 MG Vial IVPUSH ONE (14:10)
[2017-04-23] MEDS ORDERED: NS + KCl 20mEq/L 1,000 ML IV SCH (14:15)
[2017-04-23] MEDS ORDERED: Pantoprazole 80 MG in Sodium Chloride 0.9% 100 ML IV ONE (14:38)
[2017-04-23 16:58] VITALS: BP 104/55
--- NOTE | 2017-04-24 08:57 | CR ---
Chest: Frontal view of the chest was obtained. Comparison: No previous study. Thick linear density seen within the right lung base. This most likely represents atelectasis or change from aspiration. Lungs otherwise are clear. Heart size is normal. Bony structures are grossly intact. Impression: 1. Thick linear density within right lung base as noted above. 2. No additional abnormality is seen. Diagnostic code #3
--- NOTE | 2017-04-24 08:57 | CR ---
Abdomen: Supine view of the abdomen was obtained. Comparison: No prior study. Surgical clips are seen from prior cholecystectomy. Bowel gas pattern appears within normal limits. No discrete soft tissue abnormality is seen. Impression: Incidental findings. Diagnostic code #2
--- NOTE | 2017-04-24 12:15 | CT ---
Head CT Technique: Multiple axial sections through the brain were obtained. Intravenous contrast not utilized. Findings: Multiple metallic densities are seen within the posterior right parietal region. 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 Ventricles along with basal cisterns and sulci over the convexities are within normal limits. No abnormal parenchymal densities are seen. No evidence of intracranial hemorrhage. No midline shift or mass effect is identified. Mild mucosal thickening is seen within the ethmoid and right maxillary sinus. No acute calvarial abnormality is seen. Impression: 1. Metallic densities within the posterior right parietal region presumably representing intervention or previous AVM. Please correlate. 2. Mild sinus findings as noted above. 3. No acute intracranial abnormality is identified. Diagnostic code #3 Agree with preliminary report issued by [facility] ([facility] preliminary report dictated on 04/23/17, 1:46 PM Central Time)
== END 2017-04-23 15:40 ==
LOC: JD.ED 11:28
DX: N17.9 Acute kidney failure, unspecified (principal); K72.90 Hepatic failure, unspecified without coma; K92.2 Gastrointestinal hemorrhage, unspecified; E83.42 Hypomagnesemia; E87.6 Hypokalemia; F17.210 Nicotine dependence, cigarettes, uncomplicated; Z90.49 Acquired absence of other specified parts of digestive tract
CPT/HCPCS: 36430; 36600; 70450; 71010; 74000; 80053; 80306; 81001; 82140; 82803; 82962; 83605; 83690; 83735; 84703; 85025; 85610; 85730; 86140; 86850; 86900; 86901; 86922; 87040; 87086; 87088; 87186; 93005; 96361; 96365; 96375; 96376; 99285; C9113; G0480; J2060; J3480; J7030; J7050; J7060; J7120; P9016; P9612; 36415; 80074; J3475